=== PATIENT | male | born 1965 | race Two or more races ===

== ENCOUNTER 2021-03-27 08:20 | Outpatient (CLI) | payer OTHER | END 2021-03-27 08:29 | disposition home or self-care (01) | LOC: TOM 08:20 | PROVIDERS: ATTEND Urology | DX: N28.89 Other specified disorders of kidney and ureter (principal); K40.90 Unilateral inguinal hernia, without obstruction or gangrene, not specified as recurrent; R31.21 Asymptomatic microscopic hematuria; N40.1 Benign prostatic hyperplasia with lower urinary tract symptoms ==